=== PATIENT | female | born 1975 | race Caucasian/White ===

== ENCOUNTER 2024-01-01 07:20 | Day surgery (SDC) | payer OTHER ==
[~2024-01-01] VITALS: Ht 167.6 cm; Wt 71.2 kg
[2024-01-01] MEDS ORDERED: MIDAZOLAM 5 MG/5 ML VIAL ONE (08:30)
[2024-01-01] MEDS ORDERED: fentaNYL citrate 0.05 MG/ML VIAL ONE (08:30)
[2024-01-01] MEDS: fentaNYL citrate 0.05 MG/ML VIAL IVP ONE (09:24)
[2024-01-01] MEDS: LIDOCAINE 2% 100 MG/5 ML UJET TP ONE (10:11)
== END 2024-01-01 10:32 | disposition home or self-care (01) ==
LOC: MDS 07:20 → MMU 07:22 → MDS 10:32
PROVIDERS: ATTEND Internal Medicine Gastroenterology
DX: Z12.11 Encounter for screening for malignant neoplasm of colon (principal); Z79.899 Other long term (current) drug therapy; Z98.890 Other specified postprocedural states
CPT/HCPCS: 45378; J3010; J2250